=== PATIENT | male | born 1955 | race Caucasian/White ===

== ENCOUNTER 2017-02-07 09:44 | Day surgery (SDC) | payer BC ==
[~2017-02-07 09:44] MED LIST: Lactated Ringers 1,000 ML IV SCH; Sodium Chloride 0.9% 10 ML Syringe FLUSH PRN
[2017-02-07] MEDS ORDERED: Midazolam 1 MG/ML 2 ML SDV ONE ×3 (10:16→10:33)
[2017-02-07] MEDS ORDERED: fentaNYL 100 MCG/2 ML SDV ONE ×2 (10:16→10:33)
[2017-02-07] MEDS ORDERED: Propofol 200 MG/20 ML SDV ONE ×2 (10:17→10:33)
[2017-02-07] MEDS ORDERED: Lidocaine 2% 5 ML SDV ONE (10:33)
--- NOTE | 2017-02-07 10:37 | PCM.PN ---
- General Info Date of Service: 02/07/17 - Review of Systems Systems Review Comment:: 61-year-old male referred by Carolin Lopez for EGD and colonoscopy. He has been having symptoms of GERD and also has a history of colon polyps. He is medically stable to proceed today with no significant changes in his health status since his recent exam. His recent history and physical is reviewed today. I discussed the proposed EGD and colonoscopy with the patient. He agrees to proceed accepting risks. - Patient Data Vitals - most recent: Last Vital Signs Temp 97.9 F 02/07/17 10:02 Pulse 97 02/07/17 10:02 Resp 20 02/07/17 10:02 BP 151/95 H 02/07/17 10:02 Pulse Ox 97 02/07/17 10:02 Weight - most recent: 103.873 kg Med Orders - Current: Current Medications Lactated Ringer's (Ringers, Lactated) 1,000 mls @ 125 mls/hr IV ASDIRECTED DAYANARA Last Admin: 02/07/17 10:20 Dose: 125 mls/hr Sodium Chloride (Saline Flush) 10 ml FLUSH ASDIRECTED PRN PRN Reason: Keep Vein Open Discontinued Medications Fentanyl (Sublimaze) Confirm Administered Dose 100 mcg .ROUTE .STK-MED ONE Stop: 02/07/17 10:17 Midazolam HCl (Versed 1 Mg/Ml) Confirm Administered Dose 2 mg .ROUTE .STK-MED ONE Stop: 02/07/17 10:17 Midazolam HCl (Versed 1 Mg/Ml) Confirm Administered Dose 2 mg .ROUTE .STK-MED ONE Stop: 02/07/17 10:33 Propofol (Diprivan 20 Ml) Confirm Administered Dose 400 mg .ROUTE .STK-MED ONE Stop: 02/07/17 10:18 - Problem List Review Problem List Initiated/Reviewed/Updated: Yes - Assessment Assessment:: GERD History of colon polyps - Plan Plan:: EGD and colonoscopy
--- NOTE | 2017-02-07 11:42 | PCM.OPNOTE ---
- General Post-Op/Procedure Note Date of Surgery/Procedure: 02/07/17 Operative Procedure(s): EGD with Biopsy and Colonoscopy with Polypectomy and Biopsy Findings: Mild Hyperemia of antral mucosa Moderate Sigmoid Diverticulosis Multiple Right Colon Polyps Pre Op Diagnosis: GERD. History of Colon Polyps Post-Op Diagnosis: Gastritis. Colon Polyps. Diverticulosis Anesthesia Technique: MAC Primary Surgeon: Carlos Isabel Pathology: Biopsies of Gastric Antrum Cecal and Ascending Colon Polyps Output, Urine Amount: 0 EBL in mLs: 3 Complications: None Condition: Good Free Text/Narrative:: Intake & Output 02/06/17 02/07/17 02/07/17 22:59 06:59 14:59 Intake Total 900 Balance 900
[2017-02-07 12:16] VITALS: BP 147/97
--- NOTE | 2017-02-07 18:42 | OR ---
Date of Procedure: 02/07/2017 PREOPERATIVE DIAGNOSES: Gastroesophageal reflux disease and history of colon polyps. POSTOPERATIVE DIAGNOSES: Gastritis, colon polyps, and sigmoid diverticulosis. OPERATION PERFORMED: EGD with biopsy and colonoscopy with polypectomy and biopsy. INDICATIONS FOR SURGERY: This 61-year-old male who is referred for upper and lower endoscopy. He has been having some symptoms of GERD. He also has a history of colon polyps with his last colonoscopy being about 7 years ago. FINDINGS: On upper endoscopy, the patient has a mild degree of hyperemia of the antral mucosa. The exam including the esophagus, remainder of the stomach and duodenum otherwise appeared normal. On colonoscopy, the patient has multiple large polyps in the cecum and ascending colon. There was a pedunculated 2 cm polyp, located in the cecum. There is also a sessile 2 cm and a sessile 3 cm polyp in the ascending colon near the cecum. These 2 polyps were soft and do not show any evidence of bleeding. The pedunculated polyp is a little more hyperemic, but was mobile, and has had a smooth surface. The 4th polyp in the ascending colon was a sessile 6 mm polyp. The patient also has a moderate degree of sigmoid diverticulosis, which does not appear to be acutely inflamed at this time. DESCRIPTION OF PROCEDURE: The patient was taken to the operating room, given intravenous sedation and his throat was topically anesthetized. With him in the left lateral decubitus position, the esophagus was then intubated with the Olympus gastroscope. This was carefully advanced under direct visualization through the esophagus, stomach, and into the 3rd portion of the duodenum. Examination of the duodenum was then carried out and the scope was withdrawn back into the stomach where full examination, including retroflexed examination of the fundus was performed. Biopsies of the antrum were taken to rule out H. pylori. The GE junction and esophagus were then re-examined as the scope was withdrawn. Attention was turned to colonoscopy. Digital rectal exam was performed showing no rectal masses. The Olympus colonoscope was inserted into the rectum. Retroflexed examination of the rectal canal was performed. The scope was then carefully advanced under direct visualization through the entire length of the colon until the cecum was reached. Cecal acquisition was confirmed by noting the normal internal cecal anatomy including the appendiceal orifice and ileocecal valve. In the cecum, the above-described larger pedunculated polyp was identified. This was removed with a cautery snare. There was slight irregularity of the mucosa at the polypectomy site, but this was felt to be more from cautery artifact and it was felt that this polyp was able to be completely removed. The polyp was too large to suction through the scope, so it was held on the end of the scope with suction. The scope was withdrawn. The polyp was retrieved and then the scope was re-inserted to the cecum. Inspection of the polypectomy site did not show any sign of bleeding or other evidence of complication. Further examination of the ascending colon revealed 2 additional larger polyps, these were sessile in configuration and soft, but because of their broad base, were felt to be too large to remove with a normal polypectomy technique. Biopsies are taken to look for any evidence of dysplasia. These polyps were soft and appeared benign. An additional small polyp was noted in this area of the ascending colon. This was the 6 mm sessile polyp. This was removed with a cautery snare and retrieved into a polyp trap. The scope was then slowly withdrawn sequentially re-examining colonic segments. Once the colon had been completely examined and with no sign of any complication, the scope was removed, and the patient was taken from the operating room in satisfactory condition. ESTIMATED BLOOD LOSS: 3 mL. COMPLICATIONS: None. PROGNOSIS: Good. SOUMYA Isabel MD /[id number]
== END 2017-02-07 12:50 | disposition home or self-care (01) ==
LOC: LL.SDS 09:44
PROVIDERS: ATTEND Surgery
DX: Z12.11 Encounter for screening for malignant neoplasm of colon (principal); D12.0 Benign neoplasm of cecum; D12.2 Benign neoplasm of ascending colon; K29.50 Unspecified chronic gastritis without bleeding; Z86.010 Personal history of colon polyps; Z88.8 Allergy status to other drugs, medicaments and biological substances; I10 Essential (primary) hypertension; J44.9 Chronic obstructive pulmonary disease, unspecified; Z98.890 Other specified postprocedural states; Z79.899 Other long term (current) drug therapy
CPT/HCPCS: 43239; 45380; 45385; J2250; J2704; J3010; J7120

== ENCOUNTER 2021-03-30 05:25 | Observation (INO) | payer MEDICARE, BC ==
[2021-03-30] MEDS ORDERED: Calcium Carbonate 750 MG Tab.Chew PO ONE (05:43)
[2021-03-30 06:13] LABS: ANION GAP 9.9 meq/L (7-15); CHLORIDE,CL 102 mmol/L (98-107); SODIUM,NA 139 mmol/L (136-145)
[2021-03-30] MEDS ORDERED: methylPREDNISolone Sodium Succinate 125 MG/2 ML SDV IVPUSH ONE ×2 (06:39→18:00)
[2021-03-30] MEDS ORDERED: Albuterol/Ipratropium 3.0-0.5 MG/3 ML Neb Soln NEB ONE (06:39)
[2021-03-30] MEDS ORDERED: Sodium Chloride 0.9% 1,000 ML IV ONE ×3 (06:55→08:29)
[2021-03-30] MEDS ORDERED: Iopamidol 755 Mg/ML 100 ML Bottle IVPUSH STA (08:33)
--- NOTE | 2021-03-30 08:57 | PCM.SN.2 ---
- Free Text/Narrative Note: 8:48 S: patient is admitted at the start of my shift. Was evaluated in the ED for Shortness of breath that started last night and had progressively gotten worse. He has a history of metastatic prostate cancer and had his first IV chemotherapy on 03/24/2021. He has had one dose of IV radiation for the bony mets, take c laratin and oxycodone for the pain. He dose have COPD and has nebulizers at home. These usually help him but over night they did not. Has been eating and drinking well, no fevers or chills. Has a cough that is non producitve. No sick contacts that he is aware of. Had his covid vaccine in October or November. Not on a blood thinner, no history of PE or DVt. Evaluation in the ED revealed d dimer less than 500, normal troponin, normal wbc, lactic elevated to 3.5. Pateint is on Keprra. 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 Sats were 80% in the ED. humidified oxygen was started and sats are 98% on 2 lpm. He was given solou medrol, one liter of NS and azithromycin in the ED. O: patient is tachycardic at 115, sats 98% on 2 lpm, blood pressure normal, alert orientated no acute distress. No peripheral edema, heart sounds are regular rhythm but tachycardic with occasional PVC. Rub heard bilaterally in the lower lobes. NO crackles. A: hypoxia without cause. Chest x-ray without definitive pneumonia. Patient is in need of home O2 P: Will add a CTA of the chest given his cancer history with concern for PE, also to get better look at his tumor burden in his chest. Continue the Oxygen, plan to organize home o 2. Elevated lactic but could be due to seizure medications, will give two liters of fluids and recheck around 11:30. Will covid test him.
--- NOTE | 2021-03-30 08:57 | EDM.PDOC ---
ED HPI GENERAL MEDICAL PROBLEM - General Chief Complaint: General Stated Complaint: SOB Time Seen by Provider: 03/30/21 06:15 Source of Information: Reports: Patient, Family History Limitations: Reports: No Limitations - History of Present Illness INITIAL COMMENTS - FREE TEXT/NARRATIVE: Patient comes to ER with complaint of increased SOB over last 24 hours. Hx COPD. No home O2. Did get first round of chemo for metastatic stage 4 prostate cancer last Saturday. Can't cough anything up. Feels like phlegm in lower lungs. Neb treatment at home no help. Denies fevers/other changes. - Related Data Allergies Allergy/AdvReac Type Severity Reaction Status Date / Time gabapentin AdvReac Unknown unknown Verified 02/06/17 17:38 Home Meds: Home Meds Albuterol [IJD: Albuterol HFA] 1 puff INH ASDIRECTED PRN 02/06/17 [History] Albuterol/Ipratropium [DuoNeb 3.0-0.5 MG/3 ML] 3 ml INH Q4HR PRN 02/06/17 [Hi story] Fluticasone/Vilanterol [Breo Ellipta 200-25 MCG Inhalation Kit] 1 puff INH DAILY 02/06/17 [History] Metoprolol Succinate [Toprol XL] 25 mg PO DAILY 02/06/17 [History] levETIRAcetam [Keppra] 500 mg PO DAILY 02/06/17 [History] Leuprolide [Lupron Depot 3-Month] 1 injection IM ASDIRECTED 02/07/17 [History] Pregabalin [Lyrica] 75 mg PO DAILY PRN 02/07/17 [History] Albuterol/Ipratropium [Combivent Respimat] 2 puff IH ASDIRECTED PRN 03/30/21 [History] Alendronate Sodium [Fosamax] 70 mg PO WEEKLY 03/30/21 [History] Loratadine [Claritin] 10 mg PO DAILY 03/30/21 [History] Losartan [Cozaar] 100 mg PO DAILY 03/30/21 [History] Omeprazole Magnesium [Prilosec Otc] 20 mg PO DAILY 03/30/21 [History] Revefenacin [Yupelri] 175 mcg NEB Q4HRRT 03/30/21 [History] Sodium Chloride 1 gm PO DAILY 03/30/21 [History] predniSONE 5 mg PO BID 03/30/21 [History] Past Medical History HEENT History: Reports: Cataract Cardiovascular History: Reports: Arrhythmia Respiratory History: Reports: COPD, Pneumothorax Gastrointestinal History: Reports: None Musculoskeletal History: Reports: Arthritis, Fracture Neurological History: Reports: Seizure Psychiatric History: Reports: None Endocrine/Metabolic History: Reports: None Hematologic History: Reports: None Immunologic History: Reports: None Oncologic (Cancer) History: Reports: Prostate Dermatologic History: Reports: None - Past Surgical History HEENT Surgical History: Reports: Cataract Surgery Male Surgical History: Reports: Prostate Biopsy, Prostatectomy Social & Family History - Tobacco Use Tobacco Use Status *Q: Former Tobacco User Used Tobacco, but Quit: Yes Month/Year Tobacco Last Used: 04/2011 - Caffeine Use Caffeine Use: Reports: Coffee - Recreational Drug Use Recreational Drug Use: No ED ROS GENERAL - Review of Systems Review Of Systems: See Below Constitutional: Reports: No Symptoms HEENT: Reports: No Symptoms Respiratory: Reports: Shortness of Breath, Cough. Denies: Wheezing, Pleuritic Chest Pain, Sputum, Hemoptysis Cardiovascular: Reports: Dyspnea on Exertion. Denies: Chest Pain, Edema, Light headedness, Palpitations, Syncope Endocrine: Reports: No Symptoms GI/Abdominal: Reports: No Symptoms : Reports: No Symptoms Musculoskeletal: Reports: Other (no acute change from baseline) Skin: Reports: No Symptoms Neurological: Reports: No Symptoms Psychiatric: Reports: No Symptoms Hematologic/Lymphatic: Reports: No Symptoms Immunologic: Reports: No Symptoms ED EXAM, GENERAL - Physical Exam Exam: See Below Exam Limited By: No Limitations General Appearance: Alert, No Apparent Distress, Obese Eye Exam: Bilateral Eye: EOMI, PERRL Ears: Hearing Grossly Normal Nose: Normal Inspection Throat/Mouth: Normal Lips, Normal Voice, No Airway Compromise Head: Atraumatic, Normocephalic Neck: Supple, Non-Tender, Full Range of Motion Respiratory/Chest: No Respiratory Distress, Rhonchi (bilaterally). No: Decreased Breath Sounds, Rales, Wheezing, Accessory Muscle Use, Retractions Cardiovascular: No Murmur, Tachycardia GI/Abdominal: Normal Bowel Sounds, Soft, Non-Tender, No Distention (Male) Exam: Deferred Back Exam: Normal Inspection Extremities: Normal Range of Motion, Non-Tender, No Pedal Edema, Normal Capillary Refill Neurological: Alert, Oriented, Normal Cognition, Normal Gait, No Motor/Sensory Deficits Psychiatric: Normal Affect, Normal Mood Skin Exam: Warm, Dry, Intact, Normal Color Course - Vital Signs Last Recorded V/S: Last Vital Signs Temp 36.7 C 03/30/21 05:59 Pulse 112 H 03/30/21 05:59 Resp 15 03/30/21 05:59 BP 169/75 H 03/30/21 05:59 Pulse Ox 98 03/30/21 05:59 - Orders/Labs/Meds Orders: Active Orders 24 hr Category Date Time Status EKG Documentation Completion [RC] ASDIRECTED Care 03/30/21 05:33 Active EKG Documentation Completion [RC] STAT Care 03/30/21 05:32 Active RT Aerosol Therapy [RC] ASDIRECTED Care 03/30/21 06:40 Active Chest 2V [CR] Stat Exams 03/30/21 05:33 Taken Medication Orders Sodium Chloride (Normal Saline) 1,000 mls @ 1,000 mls/hr IV .BOLUS ONE Stop: 03/30/21 09:27 Sodium Chloride (Normal Saline) 1,000 mls @ 1,000 mls/hr IV .BOLUS ONE Stop: 03/30/21 09:28 Labs: Laboratory Tests 03/30/21 03/30/21 03/30/21 Range/Units 05:40 05:40 05:40 WBC 3.7 L (4.0-10.2) K/uL RBC 2.62 L (4.33-5.41) M/uL Hgb 9.2 L D (13.1-16.8) g/dL Hct 27.3 L (39.0-49.0) % MCV 104.2 H D (84.0-98.0) fL MCH 35.1 H (28.2-33.3) pg MCHC 33.7 (31.7-36.0) g/dL RDW 13.3 (11.2-14.1) % Plt Count 114 L (150-350) K/uL Neut % (Auto) 82.2 H (45.0-80.0) % Lymph % (Auto) 7.9 L (10.0-50.0) % [place] % (Auto) 9.3 (2.0-14.0) % Eos % (Auto) 0.3 (0.0-5.0) % Baso % (Auto) 0.3 (0.0-2.0) % Neut # (Auto) 3.02 (1.40-7.00) K/uL Lymph # (Auto) 0.29 L (0.50-3.50) K/uL [place] # (Auto) 0.34 (0.00-1.00) K/uL Eos # (Auto) 0.01 (0.00-0.50) K/uL Baso # (Auto) 0.01 (0.00-0.20) K/uL D-Dimer, Quantitative 369 (0-400) ng/mL Sodium 139 (136-145) mmol/L Potassium 3.8 (3.5-5.1) mmol/L Chloride 102 (98-107) mmol/L Carbon Dioxide 27.1 (21.0-32.0) mmol/L Anion Gap 9.9 (7-15) meq/L BUN 6 L (7-18) mg/dL Creatinine 0.82 (0.51-1.17) mg/dL Est Cr Clr Drug Dosing TNP Estimated GFR (MDRD) > 60 mL/min Glucose 123 H (70-99) mg/dL Lactic Acid (0.4-2.0) mmol/L Calcium 7.9 L (8.5-10.1) mg/dL Magnesium 1.8 (1.8-2.4) mg/dL Total Bilirubin 0.5 (0.2-1.0) mg/dL AST 11 L (15-37) U/L ALT 36 (12-78) U/L Alkaline Phosphatase 146 H (46-116) IU/L Troponin I High Sens 5 (<=76) ng/L NT-Pro-B Natriuret Pep 127 H (0-125) pg/mL Total Protein 6.7 (6.4-8.2) g/dL Albumin 3.4 (3.4-5.0) g/dL 03/30/21 Range/Units 05:40 WBC (4.0-10.2) K/uL RBC (4.33-5.41) M/uL Hgb (13.1-16.8) g/dL Hct (39.0-49.0) % MCV (84.0-98.0) fL MCH (28.2-33.3) pg MCHC (31.7-36.0) g/dL RDW (11.2-14.1) % Plt Count (150-350) K/uL Neut % (Auto) (45.0-80.0) % Lymph % (Auto) (10.0-50.0) % [place] % (Auto) (2.0-14.0) % Eos % (Auto) (0.0-5.0) % Baso % (Auto) (0.0-2.0) % Neut # (Auto) (1.40-7.00) K/uL Lymph # (Auto) (0.50-3.50) K/uL [place] # (Auto) (0.00-1.00) K/uL Eos # (Auto) (0.00-0.50) K/uL Baso # (Auto) (0.00-0.20) K/uL D-Dimer, Quantitative (0-400) ng/mL Sodium (136-145) mmol/L Potassium (3.5-5.1) mmol/L Chloride (98-107) mmol/L Carbon Dioxide (21.0-32.0) mmol/L Anion Gap (7-15) meq/L BUN (7-18) mg/dL Creatinine (0.51-1.17) mg/dL Est Cr Clr Drug Dosing Estimated GFR (MDRD) mL/min Glucose (70-99) mg/dL Lactic Acid 3.5 H (0.4-2.0) mmol/L Calcium (8.5-10.1) mg/dL Magnesium (1.8-2.4) mg/dL Total Bilirubin (0.2-1.0) mg/dL AST (15-37) U/L ALT (12-78) U/L Alkaline Phosphatase (46-116) IU/L Troponin I High Sens (<=76) ng/L NT-Pro-B Natriuret Pep (0-125) pg/mL Total Protein (6.4-8.2) g/dL Albumin (3.4-5.0) g/dL Meds: Medications Generic Name Dose Route Start Last Admin Trade Name Freq PRN Reason Stop Dose Admin Sodium Chloride 1,000 mls @ 1,000 mls/hr 03/30/21 08:28 Normal Saline IV 03/30/21 09:27 .BOLUS ONE Sodium Chloride 1,000 mls @ 1,000 mls/hr 03/30/21 08:29 Normal Saline IV 03/30/21 09:28 .BOLUS ONE Discontinued Medications Generic Name Dose Route Start Last Admin Trade Name Bijan PRN Reason Stop Dose Admin Albuterol/Ipratropium 3 ml 03/30/21 06:39 03/30/21 06:53 Albuterol/Ipratropium 3.0-0.5 Mg/3 Ml Neb Soln NEB 03/30/21 06:40 3 ml ONETIME ONE Administration Calcium Carbonate/Glycine 750 mg 03/30/21 05:43 03/30/21 06:13 Calcium Carbonate 750 Mg Tab.Chew PO 03/30/21 05:44 750 mg ONETIME ONE Administration Sodium Chloride 1,000 mls @ 999 mls/hr 03/30/21 06:55 03/30/21 07:20 Normal Saline IV 03/30/21 07:55 999 mls/hr .BOLUS ONE Administration Iopamidol 100 ml 03/30/21 08:33 Iopamidol 755 Mg/Ml 100 Ml Bottle IVPUSH 03/30/21 08:34 ONETIME STA Methylprednisolone Sodium Succinate 125 mg 03/30/21 06:39 03/30/21 07:25 Methylprednisolone Sodium Succinate 125 Mg/2 Ml Sdv IVPUSH 03/30/21 06:40 125 mg ONETIME ONE Administration - Radiology Interpretation Free Text/Narrative:: Radiology noted possible developing infiltrate/pneumonitis lung bases and chronic interstitial change. - Re-Assessments/Exams Free Text/Narrative Re-Assessment/Exam: 03/30/21 08:57 Patient noted to have oxygen sats drop into mid 80s periodically despite O2 via NC at 2L and neb. WBC 3.7 (suspect chemo related suppression). Hgb 9.2. ProBNP mild elevation at 127 DDimer and Trop negative. EKG showed tachycardia without obvious ST changes. Call placed to [facility] and patient reviewed with /hospitalist. It was determined that patient could be admitted here and treated for COPD exacerbation and receive Azithromycin for coverage of possible developing pneumonia. If any decline in respiratory status is noted transfer to [facility] will be arranged. Patient did not want full admission and made it clear he wanted to go home. We tried to explain that he would likely get best benefit from receiving supplemental O2 while also receiving SoluMedrol and Azithromycin and if O2 sats improved he could go home. He accepted Observation admission. Departure - Departure Time of Disposition: 07:00 Disposition: Refer to Observation Condition: Good Clinical Impression: Lung infiltrate, Elevated lactic acid level, COPD with acute exacerbation - Discharge Information *PRESCRIPTION DRUG MONITORING PROGRAM REVIEWED*: Not Applicable *COPY OF PRESCRIPTION DRUG MONITORING REPORT IN PATIENT ANNABEL: Not Applicable Sepsis Event Note (ED) - Evaluation Sepsis Screening Result: No Definite Risk - Focused Exam Vital Signs: Vital Signs Temp Pulse Resp BP Pulse Ox 03/30/21 05:59 36.7 C 112 H 15 169/75 H 98 03/30/21 05:35 36.7 C 112 H 15 169/75 H 98 - Problem List & Annotations (1) COPD with acute exacerbation SNOMED Code(s): 266163192 Code(s): J44.1 - CHRONIC OBSTRUCTIVE PULMONARY DISEASE W (ACUTE) EXACERBATION Status: Acute Priority: High Current Visit: Yes Annotation/Comment:: Acute exacerbation last 24 hours. May have been triggered by recent chemo. Pneumonitis/developing infiltrate noted by radiology. Will start Solumedrol, Zithromax IV, continue regular nebs. Continue supplemental O2. (2) Elevated lactic acid level SNOMED Code(s): 5687990 Code(s): R79.89 - OTHER SPECIFIED ABNORMAL FINDINGS OF BLOOD CHEMISTRY Status: Acute Priority: Medium Current Visit: Yes Annotation/Comment:: No evidence of sepsis at this time. (3) Lung infiltrate SNOMED Code(s): 052952153 Code(s): R91.8 - OTHER NONSPECIFIC ABNORMAL FINDING OF LUNG FIELD Status: Acute Priority: High Current Visit: Yes Annotation/Comment:: Initiate Zithromax (4) Prostate cancer metastatic to bone SNOMED Code(s): 737595612 Code(s): C61 - MALIGNANT NEOPLASM OF PROSTATE; C79.51 - SECONDARY MALIGNANT NEOPLASM OF BONE Status: Chronic Priority: Low Current Visit: Yes Annotation/Comment:: Under care of [facility]. Receiving chemo (5) HTN (hypertension) SNOMED Code(s): 93474689 Code(s): I10 - ESSENTIAL (PRIMARY) HYPERTENSION Status: Chronic Priority: Low Current Visit: Yes Annotation/Comment:: observe trends Qualifiers: Hypertension type: primary hypertension Qualified Code(s): I10 - Essential (primary) hypertension (6) Osteoarthritis SNOMED Code(s): 278077862 Code(s): M19.90 - UNSPECIFIED OSTEOARTHRITIS, UNSPECIFIED SITE Status: Chronic Priority: Low Current Visit: Yes Annotation/Comment:: stable per history Qualifiers: Osteoarthritis location: unspecified site (7) Seizure disorder SNOMED Code(s): 516140739 Code(s): G40.909 - EPILEPSY, UNSP, NOT INTRACTABLE, WITHOUT STATUS EPILEPTICUS Status: Chronic Priority: Low Current Visit: No Annotation/Comment:: stable per history (8) GERD (gastroesophageal reflux disease) SNOMED Code(s): 793855673 Code(s): K21.9 - GASTRO-ESOPHAGEAL REFLUX DISEASE WITHOUT ESOPHAGITIS Status: Chronic Priority: Low Current Visit: No Annotation/Comment:: stable per history Qualifiers: Esophagitis presence: esophagitis presence not specified Qualified Code(s): K21.9 - Gastro-esophageal reflux disease without esophagitis (9) Obesity SNOMED Code(s): 216233683, 217474354 Code(s): E66.9 - OBESITY, UNSPECIFIED Status: Chronic Priority: Low Current Visit: Yes Qualifiers: Obesity type: unspecified obesity type - Problem List Review Problem List Initiated/Reviewed/Updated: Yes - My Orders Last 24 Hours: My Active Orders 03/30/21 05:32 EKG Documentation Completion [RC] STAT 03/30/21 05:33 EKG Documentation Completion [RC] ASDIRECTED Chest 2V [CR] Stat 03/30/21 06:40 RT Aerosol Therapy [RC] ASDIRECTED - Assessment/Plan Admission H&P: Please use this note as an admission H&P Last 24 Hours: My Active Orders 03/30/21 05:32 EKG Documentation Completion [RC] STAT 03/30/21 05:33 EKG Documentation Completion [RC] ASDIRECTED Chest 2V [CR] Stat 03/30/21 06:40 RT Aerosol Therapy [RC] ASDIRECTED Assessment:: as above Plan: as above. Stable and suitable for general supervision. Patient refused full admission. Care assumed by Skylar BROCK at 0900 today.
[2021-03-30] MEDS ORDERED: Sodium Chloride 0.9% 10 ML Syringe FLUSH PRN (09:17)
[2021-03-30] MEDS ORDERED: Albuterol/Ipratropium 3.0-0.5 MG/3 ML Neb Soln NEB SCH (09:30)
[2021-03-30] MEDS ORDERED: Pregabalin 75 MG Cap PO PRN (09:31)
[2021-03-30] MEDS: Azithromycin 500 MG in Sodium Chloride 0.9% 250 ML IV SCH (11:51)
[2021-03-30] MEDS ORDERED: Non-Formulary Medication 1 Each (Revefenacin [Yupelri] 175 MCG/3 ML Neb) NEB SCH (12:00)
--- NOTE | 2021-03-30 12:44 | PCM.SN.2 ---
- Free Text/Narrative Note: Patient has been on 2lpm of O2, He is feeling better. Getting azithromycin now and rocephin IVP ordered. Attempted to ambulate, 89% with waling. ( needs to be 88%. CT chest with no pulmonary emboli, patchy nodular infiltrates in the left upper lobe and left lower lobe with peribronchial wall thickening in the left lower lobe suggest early infectious infiltrates. bilateral old rib fracture, metastatic bony disease, vertebroplasty T12, old T5 and T6 compression fractures. Discussed with patient staying overnight, will give incentive spirometer, rocephin and azithromycin. full pulmonary toliet with albuterol, duoneb and incetive spirometer.
[2021-03-30] MEDS ORDERED: LEVETIRACETAM 250 MG PO SCH (14:00)
[2021-03-30] MEDS: LOSARTAN 100 MG PO SCH (14:05)
[2021-03-30] MEDS: Loratadine 10 MG Tab PO SCH (14:05)
[2021-03-30] MEDS: SODIUM CHLORIDE 1 GM PO SCH (14:06)
[2021-03-30] MEDS: Metoprolol Succinate 25 MG Tab.ER**OWN MED PO SCH (14:06)
[2021-03-30] MEDS: Omeprazole 20 MG Cap.CR**OWN MED PO SCH (14:06)
[2021-03-30] MEDS: FLUTICASONE INH SCH (14:07)
[2021-03-30] MEDS: VILANTEROL INH SCH (14:07)
[2021-03-30] MEDS: cefTRIAXone 2 GM Vial IVPUSH SCH (14:44)
[2021-03-30] MEDS: Albuterol 0.083% 2.5 MG/3 ML Neb Soln NEB SCH (16:09)
--- NOTE | 2021-03-30 18:36 | PCM.SN.2 ---
- Free Text/Narrative Note: Patient is doing better. He has received 3 liters of fluid, is eating well. Gotten rocephin, solu medrol, and azithromycin. No fevers. Able to maintain sats at rest of 98%. Does still get to 86% with ambulation. Doing his nebulizers and starting an incentive spirometer. Repeat WBC is still normal. hemoglobin diluted from 9.2 to 8.2 States it has been between 9-11. Is ok with getting a blood transfusion if needed. May need if symptomatic with exertion still tomorrow. Will use oxygen as needed with exertion. Has started melatonin 10 mg at bedtime for restless legs, would like this tonight. Discussed his keppra as I think it is causing some lactic acidosis. This is a well documented side effect. He has not had a seizure in greater than 10 years. He also drinks at least 6 beers daily and this is a known factor in elevated lactic acid levels. States in the last week he has cut back to less. Will not continue to joan the lactic acid as there are other reasons for this and he has a normal white count, no fever. Will recheck labs and ABG in the morning. Patient would like to go home tomorrow. CRP is elevated, but not check previously
[2021-03-30] MEDS ORDERED: Melatonin 3 MG Tab PO SCH (20:00)
[2021-03-30] MEDS ORDERED: ATORVASTATIN 20 MG PO SCH (20:00)
[2021-03-30] MEDS: Albuterol/Ipratropium 3.0-0.5 MG/3 ML Neb Soln NEB SCH (20:01)
[2021-03-30 20:59] VITALS: PULSE 102
[2021-03-31] MEDS: Albuterol/Ipratropium 3.0-0.5 MG/3 ML Neb Soln NEB SCH ×2 (05:00→11:10)
[2021-03-31 07:32] VITALS: BP 142/71
[2021-03-31 07:43] LABS: ANION GAP 9.4 meq/L (7-15); CHLORIDE,CL 105 mmol/L (98-107); SODIUM,NA 140 mmol/L (136-145)
[2021-03-31] MEDS: Loratadine 10 MG Tab PO SCH (07:53)
[2021-03-31] MEDS: LOSARTAN 100 MG PO SCH (07:55)
[2021-03-31] MEDS: SODIUM CHLORIDE 1 GM PO SCH (07:55)
[2021-03-31] MEDS: Metoprolol Succinate 25 MG Tab.ER**OWN MED PO SCH (07:56)
[2021-03-31] MEDS: Omeprazole 20 MG Cap.CR**OWN MED PO SCH (07:57)
[2021-03-31] MEDS: Albuterol 0.083% 2.5 MG/3 ML Neb Soln NEB SCH ×2 (07:58)
[2021-03-31] MEDS: FLUTICASONE INH SCH (07:59)
[2021-03-31] MEDS: VILANTEROL INH SCH (07:59)
[2021-03-31] MEDS ORDERED: levETIRAcetam 500 MG Tab PO SCH (08:00)
[2021-03-31] MEDS ORDERED: levETIRAcetam 250 MG Tab PO SCH (08:00)
[2021-03-31] MEDS: Azithromycin 500 MG in Sodium Chloride 0.9% 250 ML IV SCH (09:53)
--- NOTE | 2021-03-31 09:54 | PCM.DCSUM1 ---
Discharge Summary - Hospital Course HPI Initial Comments: admitted with hypoxia, pneumonia in setting of metastatic prostate cancer in current chemotherapy with COPD Brief History: Patient was admitted with pneumonia, hypoxia yesterday. Sats were not maintained at rest. He was given full pulmonary toliet, antibiotics and O2. Blood cultures were taken and are negative thus far. negative urine culture thus far. Initially desat to 86% with ambulation on O2. Now is ambulating without oxygen an sats are 95% at the lowest. Has been receiveing iv azithromycin x 2 doses and rocephin 2 grams x 2 doses. One dose of solu medrol IV. Has nebs at home and is using incentive spirometry. lactic acid has been increased, but is a regular drinking of alcohol and take keppra which is a known lactic acidosis increaser. Discharge home for oral antibiotics, blood transufsion tomorrow. Diagnosis: Stroke: No Modified [place] Scale: No Signif.Disability Despite Sympt.Able to Carry Out Usual Act./Duties Modified Rhonda Scale Score: 1 - Discharge Data Discharge Date: 03/31/21 Discharge Disposition: Home, Self-Care 01 Condition: Good - Referral to Home Health Primary Care Physician: Omaira Pantoja NP - Discharge Diagnosis/Problem(s) (1) COPD with acute exacerbation SNOMED Code(s): 855047284 ICD Code: J44.1 - CHRONIC OBSTRUCTIVE PULMONARY DISEASE W (ACUTE) EXACERBATION Status: Acute Priority: High Current Visit: Yes Problem Details: Doing much better without oxygen needs. Will send home with short course of increased steroid for 3 days, currently on 5 mg bid. Will hold this for three days and then restart. Has plenty of nebs at home, will continue to use. Incentive spirometry three times a day for 10 repetitions, doing well withthis Acute exacerbation last 24 hours. May have been triggered by recent chemo. Pneumonitis/developing infiltrate noted by radiology. Will start Solumedrol, Zithromax IV, continue regular nebs. Continue supplemental O2. (2) Elevated lactic acid level SNOMED Code(s): 2297046 ICD Code: R79.89 - OTHER SPECIFIED ABNORMAL FINDINGS OF BLOOD CHEMISTRY Status: Acute Priority: Medium Current Visit: Yes Problem Details: Blood cultures are negative thus far, continue to watch. Keppra and regular alcohol use can cause this to remain elevated. Do not think elevation is due to sepsis No evidence of sepsis at this time. (3) Lung infiltrate SNOMED Code(s): 355098053 ICD Code: R91.8 - OTHER NONSPECIFIC ABNORMAL FINDING OF LUNG FIELD Status: Acute Priority: High Current Visit: Yes Problem Details: Patient blood cultures are negative so far. has left upper and lower infiltrates, no longer hypoxic, has received two IV doses of zithromax and rocephin at discharge. Will continue outpatient oral antibiotics with three more days of azithromycin and 7 days of doxycyline bid 100 mg Initiate Zithromax (4) Prostate cancer metastatic to bone SNOMED Code(s): 628640137 ICD Code: C61 - MALIGNANT NEOPLASM OF PROSTATE; C79.51 - SECONDARY MALIGNANT NEOPLASM OF BONE Status: Chronic Priority: Low Current Visit: Yes Problem Details: follow up in 2 weeks for next dose of chemotherapy with labs prior. anemia associated with this. Plan for one unit PRBC tomorrow for symptomatic worsening anemia Under care of [facility]. Receiving chemo (5) Seizure disorder SNOMED Code(s): 746417806 ICD Code: G40.909 - EPILEPSY, UNSP, NOT INTRACTABLE, WITHOUT STATUS EPILEPTICUS Status: Chronic Priority: Low Current Visit: No Problem Details: Last seizure was 10 years ago, minimal dose. Concern the lactic acidosis associated with this medication may continue to complicate chemo. Needs to discuss with neurology stopping this medication on a trial basis to see if seizures recur. stable per history - Patient Summary/Data Recommended Follow-up Testing/Procedures: follow up with PCP early next week to ensure hemoglobin stable. Chemotherapy in 2 weeks per oncology. Call neurology to discuss possibility of stopping the keppra due to no seizures and lactic acidosis associated with this medication. Return tomorrow for blood transfusion Hospital Course: Patient improved over the last 24 hours. not hypoxic, safe at home. Will discharge with oral antibiotics, nebs, steroids. Receive blood tomorrow. - Patient Instructions Diet: Regular Diet as Tolerated Activity: As Tolerated Driving: May Drive Today Showering/Bathing: May Shower Notify Provider of: Fever (increasing shortness of breath) - Discharge Plan *PRESCRIPTION DRUG MONITORING PROGRAM REVIEWED*: Not Applicable *COPY OF PRESCRIPTION DRUG MONITORING REPORT IN PATIENT ANNABEL: Not Applicable Prescriptions/Med Rec: Azithromycin 250 mg PO DAILY #3 tablet predniSONE [Prednisone] 50 mg PO DAILY 4 Days #4 tablet Benzonatate [Tessalon Perle] 100 mg PO Q8HR #20 capsule Doxycycline [Vibra-Tabs] 100 mg PO Q12HR 7 Days #14 tab Home Medications: Home Meds Albuterol [IJD: Albuterol HFA] 1 puff INH ASDIRECTED PRN 02/06/17 [History] Albuterol/Ipratropium [DuoNeb 3.0-0.5 MG/3 ML] 3 ml INH Q4HR PRN 02/06/17 [History] Fluticasone/Vilanterol [Breo Ellipta 200-25 MCG Inhalation Kit] 1 puff INH DAILY 02/06/17 [History] Metoprolol Succinate [Toprol XL] 25 mg PO DAILY 02/06/17 [History] Leuprolide [Lupron Depot 3-Month] 1 injection IM ASDIRECTED 02/07/17 [History] Pregabalin [Lyrica] 75 mg PO DAILY PRN 02/07/17 [History] Albuterol/Ipratropium [Combivent Respimat] 2 puff IH ASDIRECTED PRN 03/30/21 [History] Alendronate Sodium [Fosamax] 70 mg PO WEEKLY 03/30/21 [History] Loratadine [Claritin] 10 mg PO DAILY 03/30/21 [History] Losartan [Cozaar] 100 mg PO DAILY 03/30/21 [History] Omeprazole Magnesium [Prilosec Otc] 20 mg PO DAILY 03/30/21 [History] Revefenacin [Yupelri] 175 mcg NEB Q4HRRT 03/30/21 [History] Sodium Chloride 1 gm PO DAILY 03/30/21 [History] atorvaSTATin Calcium [Atorvastatin Calcium] 20 mg PO BEDTIME 03/30/21 [History] predniSONE 5 mg PO BID 03/30/21 [History] Albuterol [Proventil Neb Soln] 2.5 mg NEB Q8HRRT neb 03/31/21 [Rx] Albuterol/Ipratropium [DuoNeb 3.0-0.5 MG/3 ML] 3 ml NEB Q8H neb 03/31/21 [Rx] Azithromycin 250 mg PO DAILY #3 tablet 03/31/21 [Rx] Benzonatate [Tessalon Perle] 100 mg PO Q8HR #20 capsule 03/31/21 [Rx] Doxycycline [Vibra-Tabs] 100 mg PO Q12HR 7 Days #14 tab 03/31/21 [Rx] Melatonin 9 mg PO BEDTIME tablet 03/31/21 [Rx] levETIRAcetam [Keppra] 250 mg PO DAILY tablet 03/31/21 [Rx] predniSONE [Prednisone] 50 mg PO DAILY 4 Days #4 tablet 03/31/21 [Rx] Oxygen Therapy Mode: Room Air Patient Handouts: Chronic Obstructive Pulmonary Disease Exacerbation, [id number], Bone Metastasis, Community-Acquired Pneumonia, Adult, [id number], Lactic Acid Test Forms: ED Department Discharge Referrals: Omaira Pantoja CAREER TECHNICAL EDUCATION INSTRUCTOR [Primary Care Provider] - - Discharge Summary/Plan Comment DC Time >30 min.: Yes (45) Total # of Minutes for Discharge Time: 45 minutes Discharge Summary/Plan Comment: You were treated for pneumonia in the left upper and lower lung, hypoxia ( low oxygen), elevated lactic acid ( probable due to keppra), and anemia. You were given IV steroids, two doses of IV antibiotics ( Rocephin and azithromycin) and managed to improve your low oxygen. Pneumonia You need to continue oral antibiotics. Azithromycin is once a day for three more days starting tomorrow. Doxycycline is 100 mg twice a day for 7 more days. Take an over the counter probiotic until done with chemotherapy. Blood cultures are pending and are negative so far. you will be contacted as to growth on these. Return to the ED for increased shortness of breath Hypoxia Improved. If worsening please return to the ED. Continue to treat your COPD with your nebs, inhalers and you will take prednisone 50 mg daily for 5 days starting today, hold your regular dose of prednisone. Restart this after the 50 mg dosing is done. Use y our incentive spirometer 10 repetitions at least three times a day. Frequent ambulation and deep cough will help. You can use the tessalon perrles as needed for cough, or Robitussin elevated Lactic acid This could be due to your Keppra. this is a medication well known for increased lactic acid in the body. Discuss with your neurologist stopping this medication as it may make the leg aching better given the fact you have not had a seizure in 10 years. anemia Your hemoglobin went from 9.2 to 7.9 during your stay. This is probably due to the chemotherapy and will continue to downtrend. You are being scheduled to receive a unit of blood when it is available. This will be set up as an outpa tient. make appointment to see PCP next week for recheck of the pneumonia and your hemoglobin. Call your neurologist about stopping the keppra. Continue with chemotherapy appointments. Return as needed to the ED for worsening illness. - Patient Data Vitals - Most Recent: Last Vital Signs Temp 36.4 C 03/31/21 07:32 Pulse 102 H 03/31/21 07:56 Resp 16 03/31/21 07:32 BP 142/71 H 03/31/21 07:56 Pulse Ox 100 03/31/21 07:32 Weight - Most Recent: 104.326 kg I&O - Last 24 hours: Intake & Output 03/30/21 03/31/21 03/31/21 22:59 06:59 14:59 Intake Total 500 450 240 Balance 500 450 240 Lab Results - Last 24 hrs: Laboratory Results - last 24 hr 03/30/21 03/30/21 03/30/21 Range/Units 08:25 12:30 12:31 WBC (4.0-10.2) K/uL RBC (4.33-5.41) M/uL Hgb (13.1-16.8) g/dL Hct (39.0-49.0) % MCV (84.0-98.0) fL MCH (28.2-33.3) pg MCHC (31.7-36.0) g/dL RDW (11.2-14.1) % Plt Count (150-350) K/uL Neut % (Auto) (45.0-80.0) % Lymph % (Auto) (10.0-50.0) % [place] % (Auto) (2.0-14.0) % Eos % (Auto) (0.0-5.0) % Baso % (Auto) (0.0-2.0) % Neut # (Auto) (1.40-7.00) K/uL Lymph # (Auto) (0.50-3.50) K/uL [place] # (Auto) (0.00-1.00) K/uL Eos # (Auto) (0.00-0.50) K/uL Baso # (Auto) (0.00-0.20) K/uL Sodium (136-145) mmol/L Potassium (3.5-5.1) mmol/L Chloride (98-107) mmol/L Carbon Dioxide (21.0-32.0) mmol/L Anion Gap (7-15) meq/L BUN (7-18) mg/dL Creatinine (0.51-1.17) mg/dL Est Cr Clr Drug Dosing mL/min Estimated GFR (MDRD) mL/min Glucose (70-99) mg/dL Lactic Acid 4.3 H (0.4-2.0) mmol/L Calcium (8.5-10.1) mg/dL Magnesium (1.8-2.4) mg/dL Creatine Kinase (26-308) U/L C-Reactive Protein (<=0.9) mg/dL Specimen Type Urinvoid Urine Color Yellow Urine Appearance Clear Urine pH 6.0 (5.0-9.0) Ur Specific [place] 1.010 (1.005-1.030) Urine Protein Negative (NEGATIVE) mg/dL Urine Glucose (UA) Negative (NEGATIVE) mg/dL Urine Ketones Negative (NEGATIVE) mg/dL Urine Occult Blood Negative (NEGATIVE) Urine Nitrite Negative (NEGATIVE) Urine Bilirubin Negative (NEGATIVE) Urine Urobilinogen 0.2 (0.2-1.0) E.U./dL Ur Leukocyte Esterase Negative (NEGATIVE) Urine RBC 0-5 /HPF Urine WBC 0-5 /HPF Ur Epithelial Cells Few /LPF Urine Bacteria Not seen (NONE TO FEW) /HPF SARS-CoV-2 RNA (DOMENIC) Negative (NEGATIVE) 03/30/21 03/30/21 03/30/21 Range/Units 16:50 16:50 16:50 WBC 4.8 (4.0-10.2) K/uL RBC 2.32 L (4.33-5.41) M/uL Hgb 8.2 L (13.1-16.8) g/dL Hct 24.6 L* (39.0-49.0) % MCV 106.0 H (84.0-98.0) fL MCH 35.3 H (28.2-33.3) pg MCHC 33.3 (31.7-36.0) g/dL RDW 13.5 (11.2-14.1) % Plt Count 102 L (150-350) K/uL Neut % (Auto) 87.9 H (45.0-80.0) % Lymph % (Auto) 5.2 L (10.0-50.0) % [place] % (Auto) 6.7 (2.0-14.0) % Eos % (Auto) 0.2 (0.0-5.0) % Baso % (Auto) 0.0 (0.0-2.0) % Neut # (Auto) 4.21 (1.40-7.00) K/uL Lymph # (Auto) 0.25 L (0.50-3.50) K/uL [place] # (Auto) 0.32 (0.00-1.00) K/uL Eos # (Auto) 0.01 (0.00-0.50) K/uL Baso # (Auto) 0.00 (0.00-0.20) K/uL Sodium (136-145) mmol/L Potassium (3.5-5.1) mmol/L Chloride (98-107) mmol/L Carbon Dioxide (21.0-32.0) mmol/L Anion Gap (7-15) meq/L BUN (7-18) mg/dL Creatinine (0.51-1.17) mg/dL Est Cr Clr Drug Dosing mL/min Estimated GFR (MDRD) mL/min Glucose (70-99) mg/dL Lactic Acid 4.5 H (0.4-2.0) mmol/L Calcium (8.5-10.1) mg/dL Magnesium (1.8-2.4) mg/dL Creatine Kinase 35 (26-308) U/L C-Reactive Protein 15.7 H (<=0.9) mg/dL Specimen Type Urine Color Urine Appearance Urine pH (5.0-9.0) Ur Specific [place] (1.005-1.030) Urine Protein (NEGATIVE) mg/dL Urine Glucose (UA) (NEGATIVE) mg/dL Urine Ketones (NEGATIVE) mg/dL Urine Occult Blood (NEGATIVE) Urine Nitrite (NEGATIVE) Urine Bilirubin (NEGATIVE) Urine Urobilinogen (0.2-1.0) E.U./dL Ur Leukocyte Esterase (NEGATIVE) Urine RBC /HPF Urine WBC /HPF Ur Epithelial Cells /LPF Urine Bacteria (NONE TO FEW) /HPF SARS-CoV-2 RNA (DOMENIC) (NEGATIVE) 03/31/21 03/31/21 Range/Units 07:21 07:21 WBC 7.0 (4.0-10.2) K/uL RBC 2.25 L (4.33-5.41) M/uL Hgb 7.9 L (13.1-16.8) g/dL Hct 23.8 L* (39.0-49.0) % MCV 105.8 H (84.0-98.0) fL MCH 35.1 H (28.2-33.3) pg MCHC 33.2 (31.7-36.0) g/dL RDW 13.2 (11.2-14.1) % Plt Count 105 L (150-350) K/uL Neut % (Auto) 85.6 H (45.0-80.0) % Lymph % (Auto) 5.0 L (10.0-50.0) % [place] % (Auto) 9.4 (2.0-14.0) % Eos % (Auto) 0.0 (0.0-5.0) % Baso % (Auto) 0.0 (0.0-2.0) % Neut # (Auto) 5.99 (1.40-7.00) K/uL Lymph # (Auto) 0.35 L (0.50-3.50) K/uL [place] # (Auto) 0.66 (0.00-1.00) K/uL Eos # (Auto) 0.00 (0.00-0.50) K/uL Baso # (Auto) 0.00 (0.00-0.20) K/uL Sodium 140 (136-145) mmol/L Potassium 3.8 (3.5-5.1) mmol/L Chloride 105 (98-107) mmol/L Carbon Dioxide 25.6 (21.0-32.0) mmol/L Anion Gap 9.4 (7-15) meq/L BUN 8 (7-18) mg/dL Creatinine 0.80 (0.51-1.17) mg/dL Est Cr Clr Drug Dosing 92.52 mL/min Estimated GFR (MDRD) > 60 mL/min Glucose 170 H (70-99) mg/dL Lactic Acid (0.4-2.0) mmol/L Calcium 7.3 L (8.5-10.1) mg/dL Magnesium 1.8 (1.8-2.4) mg/dL Creatine Kinase (26-308) U/L C-Reactive Protein (<=0.9) mg/dL Specimen Type Urine Color Urine Appearance Urine pH (5.0-9.0) Ur Specific [place] (1.005-1.030) Urine Protein (NEGATIVE) mg/dL Urine Glucose (UA) (NEGATIVE) mg/dL Urine Ketones (NEGATIVE) mg/dL Urine Occult Blood (NEGATIVE) Urine Nitrite (NEGATIVE) Urine Bilirubin (NEGATIVE) Urine Urobilinogen (0.2-1.0) E.U./dL Ur Leukocyte Esterase (NEGATIVE) Urine RBC /HPF Urine WBC /HPF Ur Epithelial Cells /LPF Urine Bacteria (NONE TO FEW) /HPF SARS-CoV-2 RNA (DOMENIC) (NEGATIVE) Med Orders - Current: Current Medications Albuterol (Albuterol 0.083% 2.5 Mg/3 Ml Neb Soln) 2.5 mg NEB Q8HRRT [facility] Last Admin: 03/31/21 07:58 Dose: 2.5 mg Documented by: Albuterol/Ipratropium (Albuterol/Ipratropium 3.0-0.5 Mg/3 Ml Neb Soln) 3 ml NEB Q8H [facility] Last Admin: 03/31/21 05:00 Dose: Not Given Documented by: Ceftriaxone Sodium (Ceftriaxone 2 Gm Vial) 2 gm IVPUSH Q24H [facility] Last Admin: 03/30/21 14:44 Dose: 2 gm Documented by: Azithromycin 500 mg/ Sodium (Chloride) 250 mls @ 250 mls/hr IV Q24H [facility] Last Admin: 03/30/21 11:51 Dose: 250 mls/hr Documented by: Levetiracetam (Levetiracetam 250 Mg Tab) 250 mg PO DAILY [facility] Last Admin: 03/31/21 07:58 Dose: 250 mg Documented by: Loratadine (Loratadine 10 Mg Tab) 10 mg PO DAILY [facility] Last Admin: 03/31/21 07:53 Dose: 10 mg Documented by: Melatonin (Melatonin 3 Mg Tab) 9 mg PO BEDTIME [facility] Last Admin: 03/30/21 20:02 Dose: 9 mg Documented by: Metoprolol Succinate (Metoprolol Succinate 25 Mg Tab.ErOwn Med) 25 mg PO DAILY [facility] Last Admin: 03/31/21 07:56 Dose: 25 mg Documented by: Fluticasone/Vilanterol(Breo Ellipta 200-25mcg) Own Med 1 puff INH DAILY [facility] Last Admin: 03/31/21 07:59 Dose: 1 puff Documented by: Losartan 100mgOwn (Med) 100 each PO DAILY [facility] Last Admin: 03/31/21 07:55 Dose: 100 each Documented by: Non-Formulary Medication (Revefenacin [Yupelri]) 175 mcg NEB Q4HRRT [facility] Atorvastatin 20mg (Own Med) 20 each PO BEDTIME [facility] Last Admin: 03/30/21 20:07 Dose: Not Given Documented by: Omeprazole (Omeprazole 20 Mg Cap.CrOwn Med) 20 mg PO ACBRK [facility] Last Admin: 03/31/21 07:57 Dose: 20 mg Documented by: Pregabalin (Pregabalin 75 Mg Cap) 75 mg PO DAILY PRN PRN Reason: Pain Sodium Chloride (Sodium Chloride 0.9% 10 Ml Syringe) 10 ml FLUSH ASDIRECTED PRN PRN Reason: Keep Vein Open Sodium Chloride (Sodium Chloride 1 Gm TabOwn Med) 1 gm PO DAILY [facility] Last Admin: 03/31/21 07:55 Dose: 1 gm Documented by: Discontinued Medications Albuterol/Ipratropium (Albuterol/Ipratropium 3.0-0.5 Mg/3 Ml Neb Soln) 3 ml NEB ONETIME ONE Stop: 03/30/21 06:40 Last Admin: 03/30/21 06:53 Dose: 3 ml Documented by: Albuterol/Ipratropium (Albuterol/Ipratropium 3.0-0.5 Mg/3 Ml Neb Soln) 3 ml NEB Q4H [facility] Last Admin: 03/30/21 15:11 Dose: Not Given Documented by: Calcium Carbonate/Glycine (Calcium Carbonate 750 Mg Tab.Chew) 750 mg PO ONETIME ONE Stop: 03/30/21 05:44 Last Admin: 03/30/21 06:13 Dose: 750 mg Documented by: Sodium Chloride (Normal Saline) 1,000 mls @ 999 mls/hr IV .BOLUS ONE Stop: 03/30/21 07:55 Last Admin: 03/30/21 07:20 Dose: 999 mls/hr Documented by: Sodium Chloride (Normal Saline) 1,000 mls @ 1,000 mls/hr IV .BOLUS ONE Stop: 03/30/21 09:27 Last Admin: 03/30/21 09:39 Dose: 1,000 mls/hr Documented by: Sodium Chloride (Normal Saline) 1,000 mls @ 1,000 mls/hr IV .BOLUS ONE Stop: 03/30/21 09:28 Last Admin: 03/30/21 11:50 Dose: 1,000 mls/hr Documented by: Iopamidol (Iopamidol 755 Mg/Ml 100 Ml Bottle) 100 ml IVPUSH ONETIME STA Stop: 03/30/21 08:34 Last Admin: 03/30/21 09:17 Dose: 100 ml Documented by: Levetiracetam (Levetiracetam 500 Mg Tab) 500 mg PO DAILY [facility] Levetiracetam (Levetiracetam 250 Mg TabOwn Med) 250 mg PO BID [facility] Last Admin: 03/30/21 14:07 Dose: 250 mg Documented by: Methylprednisolone Sodium Succinate (Methylprednisolone Sodium Succinate 125 Mg/2 Ml Sdv) 125 mg IVPUSH ONETIME ONE Stop: 03/30/21 06:40 Last Admin: 03/30/21 07:25 Dose: 125 mg Documented by: Methylprednisolone Sodium Succinate (Methylprednisolone Sodium Succinate 125 Mg/2 Ml Sdv) 125 mg IVPUSH ONETIME ONE Stop: 03/30/21 18:01 Last Admin: 03/30/21 17:39 Dose: 125 mg Documented by:
[2021-03-31] MEDS: cefTRIAXone 2 GM Vial IVPUSH SCH (11:16)
== END 2021-03-31 12:05 | disposition home or self-care (01) ==
LOC: LL.ED 05:25 → LL.MS 07:51
PROVIDERS: ADMIT Emergency Medicine; ATTEND Physician Assistant
DX: J18.9 Pneumonia, unspecified organism (principal); R09.02 Hypoxemia; J44.1 Chronic obstructive pulmonary disease with (acute) exacerbation; C61 Malignant neoplasm of prostate; R79.89 Other specified abnormal findings of blood chemistry; R91.8 Other nonspecific abnormal finding of lung field; C79.51 Secondary malignant neoplasm of bone; I10 Essential (primary) hypertension; G40.909 Epilepsy, unspecified, not intractable, without status epilepticus; K21.9 Gastro-esophageal reflux disease without esophagitis; E66.9 Obesity, unspecified; Z20.822 Contact with and (suspected) exposure to COVID-19; Z88.8 Allergy status to other drugs, medicaments and biological substances; Z79.899 Other long term (current) drug therapy; Z87.891 Personal history of nicotine dependence; Z98.890 Other specified postprocedural states
CPT/HCPCS: 36415; 71046; 71275; 80048; 80053; 81001; 82550; 83605; 83735; 83880; 84484; 85025; 85379; 86140; 87040; 93005; 94640; 96365; 96366; 96374; 96375; 96376; 99217; 99220; 99285-25; A9270-GY; G0378; J0456; J0696; J2930; J7030; J7050; J7613-GY; J7620-GY; Q9967; U0002

== ENCOUNTER 2021-05-31 09:17 | Emergency (ER) | payer MEDICARE, BC ==
[2021-05-31 10:44] LABS: ANION GAP 15.2 meq/L (7-15); CHLORIDE,CL 99 mmol/L (98-107); SODIUM,NA 137 mmol/L (136-145)
--- NOTE | 2021-05-31 11:26 | EDM.PDOC ---
ED HPI GENERAL MEDICAL PROBLEM - General Chief Complaint: Respiratory Problem Stated Complaint: SOB Time Seen by Provider: 05/31/21 09:23 Source of Information: Reports: Patient History Limitations: Reports: No Limitations - History of Present Illness INITIAL COMMENTS - FREE TEXT/NARRATIVE: Patient comes to ER with primary complaint of increasing SOB. Says this has been developing slowly over a long period of time. As of today he feels pretty good if he is sitting but becomes winded with any ambulation/activity. Hx metastatic prostate cancer. Also COPD. Reports worsening fluid retention despite increases in Lasix dose. Denies sudden acute changes/fever/chills/new cough. He was wondering about being set up for home oxygen therapy. Blood transfusion yesterday - Related Data Allergies Allergy/AdvReac Type Severity Reaction Status Date / Time gabapentin AdvReac Unknown unknown Verified 05/31/21 10:32 Home Meds: Home Meds Albuterol [IJD: Albuterol HFA] 1 puff INH ASDIRECTED PRN 02/06/17 [History] Albuterol/Ipratropium [DuoNeb 3.0-0.5 MG/3 ML] 3 ml INH Q4HR PRN 02/06/17 [History] Fluticasone/Vilanterol [Breo Ellipta 200-25 MCG Inhalation Kit] 1 puff INH DAILY 02/06/17 [History] Metoprolol Succinate [Toprol XL] 25 mg PO DAILY 02/06/17 [History] Leuprolide [Lupron Depot 3-Month] 1 injection IM ASDIRECTED 02/07/17 [History] Pregabalin [Lyrica] 75 mg PO DAILY PRN 02/07/17 [History] Albuterol/Ipratropium [Combivent Respimat] 2 puff IH ASDIRECTED PRN 03/30/21 [History] Alendronate Sodium [Fosamax] 70 mg PO WEEKLY 03/30/21 [History] Loratadine [Claritin] 10 mg PO DAILY 03/30/21 [History] Losartan [Cozaar] 100 mg PO DAILY 03/30/21 [History] Omeprazole Magnesium [Prilosec Otc] 20 mg PO DAILY 03/30/21 [History] Revefenacin [Yupelri] 175 mcg NEB Q4HRRT 03/30/21 [History] Sodium Chloride 1 gm PO DAILY 03/30/21 [History] atorvaSTATin Calcium [Atorvastatin Calcium] 20 mg PO BEDTIME 03/30/21 [History] predniSONE 5 mg PO BID 03/30/21 [History] Albuterol [Proventil Neb Soln] 2.5 mg NEB Q8HRRT neb 03/31/21 [Rx] Albuterol/Ipratropium [DuoNeb 3.0-0.5 MG/3 ML] 3 ml NEB Q8H neb 03/31/21 [Rx] Azithromycin 250 mg PO DAILY #3 tablet 03/31/21 [Rx] Benzonatate [Tessalon Perle] 100 mg PO Q8HR #20 capsule 03/31/21 [Rx] Doxycycline [Vibra-Tabs] 100 mg PO Q12HR 7 Days #14 tab 03/31/21 [Rx] Melatonin 9 mg PO BEDTIME tablet 03/31/21 [Rx] levETIRAcetam [Keppra] 250 mg PO DAILY tablet 03/31/21 [Rx] Furosemide [Lasix] 20 mg PO DAILY #5 tab 05/31/21 [Rx] oxyCODONE HCl [oxyCODONE] 15 mg PO Q4H PRN 05/31/21 [History] Past Medical History HEENT History: Reports: Cataract Cardiovascular History: Reports: Arrhythmia, Heart Failure Respiratory History: Reports: COPD, Pneumothorax, SOB Gastrointestinal History: Reports: None Musculoskeletal History: Reports: Arthritis, Fracture Neurological History: Reports: Seizure Psychiatric History: Reports: None Endocrine/Metabolic History: Reports: None Hematologic History: Reports: None Immunologic History: Reports: None Oncologic (Cancer) History: Reports: Prostate Dermatologic History: Reports: None - Past Surgical History HEENT Surgical History: Reports: Cataract Surgery Male Surgical History: Reports: Prostate Biopsy, Prostatectomy Social & Family History - Tobacco Use Tobacco Use Status *Q: Former Tobacco User - Caffeine Use Caffeine Use: Reports: Coffee ED ROS GENERAL - Review of Systems Review Of Systems: See Below Constitutional: Reports: No Symptoms HEENT: Reports: No Symptoms Respiratory: Reports: Shortness of Breath, Cough (has chronic baseline cough/unchanged). Denies: Wheezing, Pleuritic Chest Pain, Sputum, Hemoptysis Cardiovascular: Reports: Dyspnea on Exertion, Edema. Denies: Chest Pain, Lightheadedness, Palpitations, PND, Syncope GI/Abdominal: Reports: No Symptoms : Reports: No Symptoms Musculoskeletal: Reports: Other (no acute changes from baseline) Skin: Reports: No Symptoms Neurological: Reports: No Symptoms Psychiatric: Reports: No Symptoms ED EXAM, GENERAL - Physical Exam Exam: See Below Exam Limited By: No Limitations General Appearance: Alert, No Apparent Distress, Obese Eye Exam: Bilateral Eye: EOMI, PERRL Ears: Hearing Grossly Normal Nose: No: Nasal Deformity, Nasal Swelling, Nasal Drainage Throat/Mouth: Normal Lips, Normal Voice, No Airway Compromise Head: Atraumatic, Normocephalic Neck: Supple, Non-Tender, Full Range of Motion Respiratory/Chest: No Respiratory Distress, No Accessory Muscle Use, Decreased Breath Sounds (mild/bilat), Wheezing (faint/bilat). No: Crackles, Stridor, Accessory Muscle Use, Retractions, Splinting Cardiovascular: Regular Rate, Rhythm, No Murmur GI/Abdominal: Soft, Non-Tender, Other (protuberant) Rectal (Males) Exam: Deferred Back Exam: No: CVA Tenderness (L), CVA Tenderness (R), Muscle Spasm Extremities: Non-Tender, Normal Capillary Refill, Pedal Edema Neurological: Alert, Oriented, Normal Cognition, Normal Gait, No Motor/Sensory Deficits Psychiatric: Normal Affect, Normal Mood Skin Exam: Warm, Dry, Intact Course - Orders/Labs/Meds Orders: Active Orders 24 hr Category Date Time Status Chest 2V [CR] Stat Exams 05/31/21 09:29 Taken UA W/MICROSCOPIC [URIN] Stat Lab 05/31/21 09:31 Ordered Labs: Laboratory Tests 05/31/21 05/31/21 05/31/21 Range/Units 10:07 10:07 10:07 WBC 4.4 (4.0-10.2) K/uL RBC 2.48 L (4.33-5.41) M/uL Hgb 8.6 L (13.1-16.8) g/dL Hct 26.2 L (39.0-49.0) % MCV 105.6 H (84.0-98.0) fL MCH 34.7 H (28.2-33.3) pg MCHC 32.8 (31.7-36.0) g/dL RDW 19.5 H (11.2-14.1) % Plt Count 56 L (150-350) K/uL Neut % (Auto) 91.1 H (45.0-80.0) % Lymph % (Auto) 3.8 L (10.0-50.0) % [place] % (Auto) 4.7 (2.0-14.0) % Eos % (Auto) 0.2 (0.0-5.0) % Baso % (Auto) 0.2 (0.0-2.0) % Neut # (Auto) 4.04 (1.40-7.00) K/uL Lymph # (Auto) 0.17 L (0.50-3.50) K/uL [place] # (Auto) 0.21 (0.00-1.00) K/uL Eos # (Auto) 0.01 (0.00-0.50) K/uL Baso # (Auto) 0.01 (0.00-0.20) K/uL Sodium 137 (136-145) mmol/L Potassium 3.5 (3.5-5.1) mmol/L Chloride 99 (98-107) mmol/L Carbon Dioxide 22.8 (21.0-32.0) mmol/L Anion Gap 15.2 H (7-15) meq/L BUN 11 (7-18) mg/dL Creatinine 0.75 (0.51-1.17) mg/dL Est Cr Clr Drug Dosing TNP Estimated GFR (MDRD) > 60 mL/min Glucose 129 H (70-99) mg/dL Lactic Acid 3.9 H (0.4-2.0) mmol/L Calcium 8.4 L (8.5-10.1) mg/dL Magnesium 2.2 (1.8-2.4) mg/dL Total Bilirubin 0.9 (0.2-1.0) mg/dL AST 11 L (15-37) U/L ALT 29 (12-78) U/L Alkaline Phosphatase 104 (46-116) IU/L Troponin I High Sens 6 (<=76) ng/L NT-Pro-B Natriuret Pep 170 H (0-125) pg/mL Total Protein 6.4 (6.4-8.2) g/dL Albumin 3.3 L (3.4-5.0) g/dL - Re-Assessments/Exams Free Text/Narrative Re-Assessment/Exam: 05/31/21 11:40 Labs/chest xray ordered. Chest xray showed mild changes lower lungs/atelectasis vs infiltrate vs ?/pending formal radiology review. Normal WBC. Hgb 8.6 Macrocytosis. Platelets down to 56. Lactic 3.9. Review of chart shows patient's lactic is chronically elevated. No evidence of sepsis at this time. ProBNP minimally elevated at 170. Patient declined DDimer, says that is chronically elevated. Had negative chest PE scan two months ago. He does not feel this is an acute change and does not feel it is due to PE at this time. Increased SOB could be multifactorial and appears to be chronic/progressive. Patient is having more fluid retention in general. Toxic effects of chemo may also be contributing. Metastatic disease could also be a factor. Noted to have room air sats as low as 88% wile sitting in ER. Down to 87% when he stood up. Patient would benefit from PRN home O2. Insurance requires that paperwork be filled out by PCP and they will not accept ER documentation. Plan at this time is to have patient go immediately to clinic so that appropriate paperwork can be filled out by PCP. THis will allow patient to receive home O2 today. He snores at night but has not been evaluated for CPAP/sleep apnea. It was suggested to him that he discuss this with Omaira at clinic. He is to use the O2 PRN with activity and also with rest. May need it at night given the snoring/again a night time sleep study may be useful. Additional Lasix for an afternoon dose over the next 5 days will be dispensed. No antibiotics at this time given lack of fever or other obvious signs of acute infection. Recommend follow up appointment with Omaira next week for recheck. Departure - Departure Time of Disposition: 11:25 Disposition: Home, Self-Care 01 Condition: Good Clinical Impression: Hypoxemia, Thrombocytopenia, Fluid retention - Discharge Information *PRESCRIPTION DRUG MONITORING PROGRAM REVIEWED*: Not Applicable *COPY OF PRESCRIPTION DRUG MONITORING REPORT IN PATIENT ANNABEL: Not Applicable Prescriptions: Furosemide [Lasix] 20 mg PO DAILY #5 tab Referrals: Omaira Pantoja, [employer] [Primary Care Provider] - Additional Instructions: Go directly to clinic and obtain paperwork to get cleared for home oxygen concentrator. Follow up as needed otherwise if you have new or worsening pr oblems. - My Orders Last 24 Hours: My Active Orders 05/31/21 09:29 Chest 2V [CR] Stat 05/31/21 09:31 UA W/MICROSCOPIC [URIN] Stat - Assessment/Plan Last 24 Hours: My Active Orders 05/31/21 09:29 Chest 2V [CR] Stat 05/31/21 09:31 UA W/MICROSCOPIC [URIN] Stat
[2021-05-31 13:24] VITALS: BP 134/91; PULSE 111
== END 2021-05-31 11:45 | disposition home or self-care (01) ==
LOC: LL.ED 09:17
DX: R09.02 Hypoxemia (principal); D69.6 Thrombocytopenia, unspecified; R60.9 Edema, unspecified; J44.9 Chronic obstructive pulmonary disease, unspecified; I50.9 Heart failure, unspecified; Z88.5 Allergy status to narcotic agent; Z79.899 Other long term (current) drug therapy; Z87.891 Personal history of nicotine dependence
CPT/HCPCS: 36415; 71046; 80053; 83605; 83735; 83880; 84484; 85025; 99284; 99285-25